=== PATIENT | female | born 1990 | race Caucasian/White ===

== ENCOUNTER 2017-12-12 12:43 | Emergency (ER) | payer OTHER ==
[~2017-12-12] VITALS: Ht 175.3 cm; Wt 104.3 kg
[2017-12-12 13:04] VITALS: Ht 175.3 cm; Wt 104.3 kg
[2017-12-12 15:51] LABS: UA SPECIFIC GRAVITY 1.025 (1.005-1.035); microscopic required? YES; urine erythrocyte NEGATIVE (NEGATIVE)
[2017-12-12 16:01] LABS: CALCIUM 9.3 mg/dL (8.5-10.1); CARBON DIOXIDE 28.8 mmol/L (21-32); CHLORIDE SERUM 99 mmol/L (98-107); CREATININE SERUM 0.6 mg/dL (0.6-1.0); GFR1 > 60 mL/min; GLUCOSE SERUM 270 mg/dL (74-106); POTASSIUM SERUM 3.6 mmol/L (3.5-5.1); SODIUM SERUM 137 mmol/L (136-145)
[2017-12-12 17:27] VITALS: BP 151/90
== END 2017-12-12 17:27 | disposition home or self-care (01) ==
LOC: ED 12:43
PROVIDERS: Emergency Medicine Emergency Medical Services
DX: R35.0 Frequency of micturition (principal); I10 Essential (primary) hypertension
CPT/HCPCS: J7030